=== PATIENT | male | born 1990 | race Caucasian/White ===

== ENCOUNTER 2023-02-01 15:00 | Emergency (ER) | payer MEDICAID, OTHER ==
[~2023-02-01] VITALS: Ht 175.3 cm; Wt 68.0 kg
[2023-02-01] MEDS ORDERED: KETOROLAC TROMETHAMINE INJ 30 MG/ML VIAL IM ONE (15:30)
[2023-02-01] MEDS ORDERED: KETOROLAC TROMETHAMINE 15 MG/ML VIAL ONE (15:32)
[2023-02-01] MEDS ORDERED: IBUP-1955 PO (16:57)
[2023-02-01 17:24] VITALS: BP 131/68; TEMP 98; O2SAT 100
== END 2023-02-01 17:26 | disposition home or self-care (01) ==
LOC: ER 15:14
DX: S20.212A Contusion of left front wall of thorax, initial encounter (principal); X58.XXXA Exposure to other specified factors, initial encounter; Y93.89 Activity, other specified; Y92.89 Other specified places as the place of occurrence of the external cause; Y99.8 Other external cause status
CPT/HCPCS: 99283; 96372; 71100; J1885